=== PATIENT | female | born 1975 | race Caucasian/White ===

== ENCOUNTER 2025-03-19 09:40 | Emergency (ER) | payer MEDICAID ==
[~2025-03-19] VITALS: Ht 134.6 cm; Wt 61.8 kg
[2025-03-19 10:12] VITALS: BP 00/00
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
== END 2025-03-19 10:12 | disposition left against medical advice (07) ==
LOC: ED 09:40
DX: M25.531 Pain in right wrist (principal); Z88.0 Allergy status to penicillin; Z53.29 Procedure and treatment not carried out because of patient's decision for other reasons
CPT/HCPCS: 73110; 99283

== ENCOUNTER 2025-05-19 19:25 | Emergency (ER) | payer OTHER ==
[~2025-05-19] VITALS: Ht 134.6 cm; Wt 65.0 kg
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
[2025-05-19] MEDS ORDERED: DOXYCYCLINE HYCLATE 100 MG HOME.PACK PO ONE (20:15)
[2025-05-19 21:10] VITALS: BP 170/109
== END 2025-05-19 21:10 | disposition other institution, planned readmission (95) ==
LOC: ED 19:25
DX: T74.21XA Adult sexual abuse, confirmed, initial encounter (principal); Z88.0 Allergy status to penicillin
CPT/HCPCS: 80053; 80307; 84443; 84703; 85025; 99284; G0480